=== PATIENT | female | born 1980 | race Caucasian/White ===

== ENCOUNTER 2018-07-18 08:13 | Outpatient (REF) | payer OTHER, SELFPAY ==
[2018-07-18 13:37] LABS: ALT 29 U/L (12-78); AST 20 U/L (15-37); Albumin 3.8 g/dL (3.4-5.0); Alkaline Phosphatase 51 U/L (46-116); Anion Gap 9.5 mmol/L (3-11); BUN 9 mg/dL (7-18); Bilirubin, Total 0.6 mg/dL (0.2-1.0); CO2 28.5 mmol/L (21.0-32.0); Calcium 8.8 mg/dL (8.5-10.1); Chloride 104 mmol/L (98-107); Cholesterol 161 mg/dL (50-200); Glucose 93 mg/dL (70-100); HDL Cholesterol 45 mg/dL (40-60); LDL CHOLESTEROL 104 mg/dL (<100); Potassium 4.4 mmol/L (3.5-5.1); Sodium 142 mmol/L (136-145); Total Protein 6.5 g/dL (6.4-8.2); Triglyceride 53 mg/dL (30-150)
== END 2018-07-18 08:33 ==
LOC: NCHCN 08:13
PROVIDERS: PCP Registered Nurse; Visit Provider Family Medicine
DX: E78.5 Hyperlipidemia, unspecified (principal); K21.9 Gastro-esophageal reflux disease without esophagitis; R06.02 Shortness of breath; F41.9 Anxiety disorder, unspecified
CPT/HCPCS: 80053; 80061; 83721

== ENCOUNTER 2018-08-12 00:35 | Outpatient (CLI) | payer OTHER, SELFPAY ==
--- NOTE | 2018-08-12 07:50 | DI.MAMMO_ITS ---
SYMPTOM/DIAGNOSIS: SCREENING, BASELINE, WELL ADULT PREVENTATIVE, Z00.00, Z12.31 MAMMOGRAM: Mammograms were interpreted according to the usual protocol including computer analysis with CAD system, tomosynthesis and C view imaging. No priors for comparison. Breast density C. No suspicious masses or microcalcifications are seen. There is no definite evidence of malignancy. IMPRESSION: Negative mammogram. Routine screening is recommended. Category I. MQSA ASSESSMENT OF FINDINGS: Negative. Category 1. Patient will receive a letter notifying them of these results. Bi-RADS category C. The breasts are heterogeneously dense, which may obscure small masses.
== END 2018-08-12 00:55 ==
PROVIDERS: PCP Registered Nurse; Visit Provider Family Medicine
DX: Z12.31 Encounter for screening mammogram for malignant neoplasm of breast (principal); Z00.00 Encounter for general adult medical examination without abnormal findings
CPT/HCPCS: 77063; 77067

== ENCOUNTER 2018-12-18 09:53 | Outpatient (CLI) | payer OTHER, SELFPAY ==
--- NOTE | 2018-12-18 08:42 | DI.RAD_ITS ---
SYMPTOM/DIAGNOSIS: SHOULDER PAIN RIGHT SHOULDER: 12/18 Two views were obtained. No significant bony abnormality seen. Note is made of a rounded soft tissue calcification projected in the region of the distal infraspinatus tendon consistent with calcific peritendinitis. A tiny calcific or ossific density also noted adjacent to the greater tuberosity of the humerus on the axillary view, probably post inflammatory as well.
== END 2018-12-18 10:13 ==
PROVIDERS: PCP Registered Nurse; Visit Provider Student in an Organized Health Care Education/Training Program
DX: M25.511 Pain in right shoulder (principal); M75.31 Calcific tendinitis of right shoulder
CPT/HCPCS: 73030

== ENCOUNTER 2020-05-30 16:31 | Outpatient (REF) | payer OTHER, SELFPAY ==
[2020-05-30 13:28] LABS: HCT 41.1 % (36.0-46.0); HGB 13.7 g/dL (11.2-15.7); MCH 29.9 pg (27.0-33.0); MCHC 33.3 % (32.0-36.0); MCV 89.7 fL (80-95); MPV 11.1 fL (8.0-11.0); Platelet Count 253 10^3/uL (130-400); RBC 4.58 10^6/uL (3.93-5.22); RDW 12.7 % (11.7-14.6); RDW-SD 41.9 fL; WBC 5.93 10^3/uL (4.4-10.8)
[2020-05-30 14:08] LABS: ALT 26 U/L (14-59); AST 19 U/L (15-37); Albumin 3.8 g/dL (3.4-5.0); Alkaline Phosphatase 40 U/L (46-116); Anion Gap 4.6 mmol/L (3-11); BUN 10 mg/dL (7-18); Bilirubin, Total 0.6 mg/dL (0.2-1.0); CO2 28.4 mmol/L (21.0-32.0); CREATININE 0.6 mg/dL (0.55-1.02); Calcium 8.7 mg/dL (8.5-10.1); Calculated LDL 121 mg/dL (<100); Chloride 107 mmol/L (98-107); Cholesterol 190 mg/dL (<200); Glucose 90 mg/dL (74-106); HDL Cholesterol 57 mg/dL (40-60); Potassium 4.5 mmol/L (3.5-5.1); Sodium 140 mmol/L (136-145); TSH 2.16 uIU/mL (0.36-3.74); Total Protein 6.4 g/dL (6.4-8.2); Triglyceride 63 mg/dL (<150)
[2020-05-30 14:11] LABS: Vitamin D 25 Total 28.2 ng/ml (30-100)
== END 2020-05-30 16:32 | disposition home or self-care (01) ==
LOC: NCHCN 16:31
PROVIDERS: PCP Registered Nurse; Visit Provider Family Medicine
DX: E55.9 Vitamin D deficiency, unspecified (principal); E78.5 Hyperlipidemia, unspecified; Z00.00 Encounter for general adult medical examination without abnormal findings
CPT/HCPCS: 80053; 80061; 82306; 85027; 84443

== ENCOUNTER 2021-05-15 12:00 | Outpatient (REF) | payer OTHER, SELFPAY ==
[2021-05-15 21:29] LABS: BUN 9 mg/dL (7-18); CREATININE 0.7 mg/dL (0.55-1.02); Calcium 9.1 mg/dL (8.5-10.1); Chloride 100 mmol/L (98-107); Glucose 102 mg/dL (74-106); Magnesium 2.4 mg/dL (1.8-2.4); Potassium 3.5 mmol/L (3.5-5.1); Sodium 134 mmol/L (136-145)
[2021-05-15 22:12] LABS: Vitamin D 25 Total 36.9 ng/mL (30-100)
== END 2021-05-15 12:01 | disposition home or self-care (01) ==
LOC: NCHCN 12:00
PROVIDERS: PCP Family Medicine; Visit Provider Family Medicine
DX: R00.2 Palpitations (principal)
CPT/HCPCS: 80048; 82306; 83735

== ENCOUNTER 2021-05-18 09:27 | Outpatient (CLI) | payer OTHER, SELFPAY ==
--- NOTE | 2021-06-19 08:44 | W.CARDEVENT ---
Date of service: 06/19/21 Time of Service: 08:44 Cardiac Event Recorder Referring Provider:: nelda Indications:: palps Cardiac Event Note: This is a 30-day event monitor order for indication of palpitations. ?Patient was in normal sinus rhythm for the majority of the recording with an average heart rate of 80 bpm. ?There were 2 automatically detected events which were sinus tachycardia. ?There were no episodes of SVT nor any episodes of nonsustained VT. ?There were 61 patient triggered events described as shortness of breath, fluttering, skipped beats, chest pressure chest pain. A number of these symptoms were associated with PVCs as well as bigeminy and trigeminy. The event recorder is unable to report how many total PVCs there are. ?There were no episodes of atrial fibrillation, pauses greater than 3 seconds or evidence of high degree heart block.
== END 2021-05-18 09:28 | disposition home or self-care (01) ==
PROVIDERS: PCP Family Medicine; Visit Provider Family Medicine
DX: R00.2 Palpitations (principal); I49.3 Ventricular premature depolarization; R00.8 Other abnormalities of heart beat
CPT/HCPCS: 93270

== ENCOUNTER 2021-07-12 08:56 | Outpatient (REF) | payer OTHER, SELFPAY ==
[2021-07-12 16:15] LABS: HCT 46.4 % (36.0-46.0); HGB 14.9 g/dL (11.2-15.7); MCH 29.7 pg (27.0-33.0); MCHC 32.1 % (32.0-36.0); MCV 92.6 fL (80-95); MPV 11.6 fL (8.0-11.0); Platelet Count 257 10^3/uL (130-400); RBC 5.01 10^6/uL (3.93-5.22); RDW 12.4 % (11.7-14.6); RDW-SD 42.6 fL; WBC 6.52 10^3/uL (4.4-10.8)
[2021-07-12 18:34] LABS: ALT 28 U/L (14-59); AST 18 U/L (15-37); Albumin 4.3 g/dL (3.4-5.0); Alkaline Phosphatase 51 U/L (46-116); Anion Gap 9.6 mmol/L (3-11); BUN 12 mg/dL (7-18); CO2 25.4 mmol/L (21.0-32.0); CREATININE 0.8 mg/dL (0.55-1.02); Calcium 9.1 mg/dL (8.5-10.1); Chloride 104 mmol/L (98-107); Glucose 87 mg/dL (74-106); Potassium 4.7 mmol/L (3.5-5.1); Sodium 139 mmol/L (136-145); Total Protein 7.1 g/dL (6.4-8.2)
[2021-07-12 22:34] LABS: Estradiol 69 pg/mL (See Note); Progesterone 2.6 ng/mL (See Table)
[2021-07-12 22:43] LABS: FSH 4.6 mIU/mL (See Note); Prolactin 18.5 ng/mL (See Table)
[2021-07-12 22:46] LABS: LH 4.2 mIU/mL (See Note)
[2021-07-13 14:59] LABS: Calculated LDL 132 mg/dL (<100); Cholesterol 200 mg/dL (<200); HDL Cholesterol 53 mg/dL (40-60); Triglyceride 77 mg/dL (<150)
== END 2021-07-12 08:57 | disposition home or self-care (01) ==
LOC: NCHCN 08:56
PROVIDERS: PCP Family Medicine; Visit Provider Family Medicine
DX: Z00.00 Encounter for general adult medical examination without abnormal findings (principal); E55.9 Vitamin D deficiency, unspecified; E78.5 Hyperlipidemia, unspecified; E66.3 Overweight
CPT/HCPCS: 80053; 80061; 82670; 85027; 83001; 83002; 84144; 84146

== ENCOUNTER 2021-07-20 16:11 | Outpatient (REF) | payer OTHER, SELFPAY ==
--- NOTE | 2021-07-20 14:45 | PAPFT_PTH ---
PATIENT: Rachna Domingo LOC: [facility] U#:[id number] AGE/SX: 40/F ROOM: RE07/20/[address]: Olivia Saavedra : 1980 BED: DIS: 07/20/2021 SPEC #: [id number] RECD: 07/21/21 12:44 STATUS: JOVITA REHanna #: [id number] NEGIN: 07/20/21 14:[address]: Olivia Saavedra [facility] Cytology RECD BY: Kelly Chand Tissues: 1 - CX/ENDOCX FOR PAP SMEARS Procedures: PAP THIN PREP/[facility] Screening HPV DNA PROBE Comments: [id number]
[2021-07-20 20:26] LABS: C-Reactive Protein 0.08 mg/dL (0.0-0.3)
[2021-07-20 20:47] LABS: ESR 3 mm/hr (0-20)
[2021-07-21 17:26] LABS: Rheumatoid Factor <8.6 IU/mL (<12.0)
[2021-07-24 12:55] LABS: c-ANCA Negative (Negative); p-ANCA Negative (Negative)
[2021-07-24 13:50] LABS: ANA Interpretation Negative (Negative)
== END 2021-07-20 16:12 | disposition home or self-care (01) ==
LOC: NCHCN 16:11
PROVIDERS: PCP Family Medicine; Visit Provider Family Medicine
DX: Z00.00 Encounter for general adult medical examination without abnormal findings (principal); Z12.4 Encounter for screening for malignant neoplasm of cervix; Z11.51 Encounter for screening for human papillomavirus (HPV); M25.40 Effusion, unspecified joint; Z01.419 Encounter for gynecological examination (general) (routine) without abnormal findings
CPT/HCPCS: 85652; 88142; 86038; 86140; 86255; 86431; 87624

== ENCOUNTER 2021-07-20 18:49 | Outpatient (REF) | payer OTHER, SELFPAY | END 2021-07-20 18:50 | disposition home or self-care (01) | LOC: NCHCN 18:49 | PROVIDERS: PCP Family Medicine; Visit Provider Family Medicine ==

== ENCOUNTER 2021-07-24 13:31 | Outpatient (CLI) | payer OTHER, SELFPAY ==
--- NOTE | 2021-07-24 14:39 | DI.RAD_ITS ---
Exam(s) XR HAND LT COMPLETE EXAM: XR HAND LT COMPLETE CLINICAL HISTORY: JOINT SWELLING M25.40. TECHNIQUE: 2D digital imaging was performed. Three views. COMPARISON: No exams were available for comparison FINDINGS: BONES: No acute fracture is present. No bony destructive lesion is seen. JOINTS: No dislocation present. No significant degenerative changes SOFT TISSUE: Normal. IMPRESSION: Unremarkable radiographs of the left hand. DATA REPOSITORY: RADIATION DOSE DELIVERED:
--- NOTE | 2021-07-24 14:43 | DI.RAD_ITS ---
Exam(s) XR HAND RT COMPLETE EXAM: XR HAND RT COMPLETE CLINICAL HISTORY: JOINT SWELLING M25.40. TECHNIQUE: 2D digital imaging was performed. Three views. COMPARISON: CR XR HAND LT COMPLETE from 07/24/2021 FINDINGS: BONES: No acute fracture is present. No bony destructive lesion is seen. JOINTS: No dislocation present. No significant degenerative changes. SOFT TISSUE: Normal. IMPRESSION: Unremarkable radiographs of the right hand. DATA REPOSITORY: RADIATION DOSE DELIVERED:
== END 2021-07-24 13:51 ==
PROVIDERS: PCP Family Medicine; Visit Provider Family Medicine
DX: M79.641 Pain in right hand (principal); M79.642 Pain in left hand; M25.441 Effusion, right hand; M25.442 Effusion, left hand
CPT/HCPCS: 73130

== ENCOUNTER 2022-06-28 15:50 | Outpatient (REF) | payer OTHER, SELFPAY ==
[2022-06-28 15:52] LABS: HCT 43.6 % (36.0-46.0); HGB 14.7 g/dL (11.2-15.7); MCH 30.1 pg (27.0-33.0); MCHC 33.7 % (32.0-36.0); MCV 89 fL (80-95); MPV 11.5 fL (8.0-11.0); Platelet Count 235 10^3/uL (130-400); RBC 4.88 10^6/uL (3.93-5.22); RDW 12.6 % (11.7-14.6); RDW-SD 41.3 fL; WBC 5.39 10^3/uL (4.4-10.8)
[2022-06-28 15:57] LABS: ALT 23 U/L (14-59); AST 23 U/L (15-37); Albumin 4.2 g/dL (3.4-5.0); Alkaline Phosphatase 49 U/L (46-116); Anion Gap 7.9 mmol/L (3-11); BUN 10 mg/dL (7-18); Bilirubin, Total 0.7 mg/dL (0.2-1.0); CO2 29.1 mmol/L (21.0-32.0); CREATININE 0.7 mg/dL (0.55-1.02); Calcium 8.9 mg/dL (8.5-10.1); Calculated LDL 116 mg/dL (<100); Chloride 104 mmol/L (98-107); Cholesterol 185 mg/dL (<200); Estimated GFR 109.98 (mL/min/1.73m2); Glucose 93 mg/dL (74-106); HDL Cholesterol 62 mg/dL (40-60); Potassium 4.1 mmol/L (3.5-5.1); Sodium 141 mmol/L (136-145); Total Protein 6.9 g/dL (6.4-8.2); Triglyceride 38 mg/dL (<150)
[2022-06-28 16:12] LABS: Vitamin D 25 Total 43.4 ng/mL (30-100)
== END 2022-06-28 15:51 | disposition home or self-care (01) ==
LOC: NCHCN 15:50
PROVIDERS: PCP Family Medicine; Visit Provider Physician Assistant
DX: E78.5 Hyperlipidemia, unspecified (principal); K21.9 Gastro-esophageal reflux disease without esophagitis; E55.9 Vitamin D deficiency, unspecified
CPT/HCPCS: 80053; 80061; 82306; 85027

== ENCOUNTER 2023-07-08 10:14 | Outpatient (REF) | payer OTHER, SELFPAY ==
[2023-07-08 15:44] LABS: Abs Immature Grans 0.02 10^3/uL (0.0-0.06); Absolute Basophil Count 0.04 10^3/uL (0.0-0.2); Absolute Eosinophil Count 0.13 10^3/uL (0.0-0.7); Absolute Neutrophil Count 5.73 10^3/uL (1.2-6.7); Basophils % 0.5; Eosinophils % 1.6; HCT 44.6 % (36.0-46.0); HGB 14.6 g/dL (11.2-15.7); Immature Grans % 0.3; Lymphocytes % 17.7; MCH 30.4 pg (27.0-33.0); MCHC 32.7 % (32.0-36.0); MCV 93 fL (80-95); MPV 11.2 fL (8.0-11.0); Monocytes % 7.6; Neutrophils % 72.3; Platelet Count 237 10^3/uL (130-400); RDW 12.4 % (11.7-14.6); RDW-SD 42.8 fL; WBC 7.92 10^3/uL (4.4-10.8)
[2023-07-08 16:36] LABS: Vitamin D 25 Total 33.2 ng/mL (30-100)
[2023-07-08 16:53] LABS: ALT 20 U/L (14-59); AST 18 U/L (15-37); Albumin 4.1 g/dL (3.4-5.0); Alkaline Phosphatase 44 U/L (46-116); Anion Gap 8.1 mmol/L (3-11); BUN 11 mg/dL (7-18); Bilirubin, Total 0.7 mg/dL (0.2-1.0); CO2 28.9 mmol/L (21.0-32.0); CREATININE 0.6 mg/dL (0.55-1.02); Calcium 8.9 mg/dL (8.5-10.1); Calculated LDL 142 mg/dL (<100); Chloride 103 mmol/L (98-107); Cholesterol 212 mg/dL (<200); Estimated GFR 113.44 (mL/min/1.73m2); Glucose 90 mg/dL (74-106); HDL Cholesterol 59 mg/dL (40-60); Sodium 140 mmol/L (136-145); Total Protein 6.9 g/dL (6.4-8.2); Triglyceride 55 mg/dL (<150); Vitamin B12 1176 pg/mL (193-986)
== END 2023-07-08 10:15 | disposition home or self-care (01) ==
LOC: NCHCN 10:14
PROVIDERS: PCP Family Medicine; Visit Provider Physician Assistant
DX: E55.9 Vitamin D deficiency, unspecified (principal); E53.8 Deficiency of other specified B group vitamins; R79.89 Other specified abnormal findings of blood chemistry
CPT/HCPCS: 80053; 80061; 82306; 82607; 85025

== ENCOUNTER 2023-07-18 10:01 | Outpatient (CLI) | payer OTHER, SELFPAY | END 2023-07-18 10:02 | disposition home or self-care (01) | LOC: CARDOPNVT 10:01 | PROVIDERS: PCP Family Medicine; Visit Provider Physician Assistant | DX: R00.2 Palpitations (principal) | CPT/HCPCS: 93270 ==

== ENCOUNTER 2023-08-20 10:56 | Outpatient (CLI) | payer OTHER, SELFPAY ==
--- NOTE | 2023-08-20 11:58 | W.CARDEVENT ---
Date of service: 08/20/23 Time of Service: 11:58 Cardiac Event Recorder Referring Provider:: Ludwig Eldridge Indications:: Palpitations Cardiac Event Note: This is a cardiac event monitor. Patient was monitored for 29 days. Rhythm throughout was sinus. Average heart rate was 69. Minimum was 57. Maximum was 160 There were rare isolated premature ventricular contractions There was no atrial fibrillation, no high-grade AV block, no pauses greater than 3 seconds Symptoms were reported which correlated with PVCs
== END 2023-08-20 10:57 | disposition home or self-care (01) ==
LOC: CARDOPNVT 10:56
PROVIDERS: PCP Family Medicine; Visit Provider Internal Medicine Cardiovascular Disease
DX: I49.3 Ventricular premature depolarization

== ENCOUNTER 2024-07-01 08:50 | Outpatient (REF) | payer OTHER, SELFPAY ==
[2024-07-01 15:04] LABS: HCT 43.1 % (36.0-46.0); HGB 14.2 g/dL (11.2-15.7); MCH 30.1 pg (27.0-33.0); MCHC 32.9 % (32.0-36.0); MCV 91 fL (80-95); MPV 10.8 fL (8.0-11.0); Platelet Count 258 10^3/uL (130-400); RBC 4.72 10^6/uL (3.93-5.22); RDW 12.7 % (11.7-14.6); RDW-SD 42.5 fL; WBC 4.86 10^3/uL (4.4-10.8)
[2024-07-01 15:40] LABS: ALT 21 U/L (14-59); AST 23 U/L (15-37); Albumin 4.1 g/dL (3.4-5.0); Alkaline Phosphatase 48 U/L (46-116); Anion Gap 7.6 mmol/L (3-11); BUN 9 mg/dL (7-18); Bilirubin, Total 0.9 mg/dL (0.2-1.0); CO2 29.4 mmol/L (21.0-32.0); CREATININE 0.7 mg/dL (0.55-1.02); Calculated LDL 155 mg/dL (<100); Chloride 105 mmol/L (98-107); Cholesterol 236 mg/dL (<200); Estimated GFR 108.62 (mL/min/1.73m2); Glucose 96 mg/dL (74-106); HDL Cholesterol 68 mg/dL (>or=50); Sodium 142 mmol/L (136-145); Total Protein 6.8 g/dL (6.4-8.2); Triglyceride 67 mg/dL (<150)
== END 2024-07-01 08:51 | disposition home or self-care (01) ==
LOC: NCHCN 08:50
PROVIDERS: PCP Family Medicine; Visit Provider Physician Assistant
DX: E78.5 Hyperlipidemia, unspecified (principal)
CPT/HCPCS: 80053; 80061; 85027